=== PATIENT | female | born 1995 | race Caucasian/White ===

== ENCOUNTER → 2017-10-30 11:44 | Outpatient (CLI) | payer OTHER, SELFPAY ==
[2017-10-30 14:02] LABS: Color, Urine Yellow (Yellow); Glucose, Dipstick Normal (Normal); Ketone-Dipstick Negative (Negative); Leukocyte Esterase-Dipstick 25 /ul (Negative); Nitrite-Dipstick Negative (Negative); Occult Blood-Urine 10 /ul (Negative); Protein-Dipstick 30 mg/dl (Negative); Specific Gravity, Urine 1.015 (1.002-1.030); Urine Bilirubin Dipstick Negative (Negative); Urine Clarity Sl. Cloudy (Clear); Urine Urobilinogen Normal (Normal)
[2017-10-30 14:03] LABS: Absolute Lymphocyte Count 1.28 X10^3/ul (0.83-4.51); Absolute Neutrophil Count 5.2 X10^3/uL (2.0-7.7); Basophil# 0.02 X10^3/uL; Basophil% 0.3 % (0-1); Eosinophil# 0.04 X10^3/uL; Eosinophils% 0.6 % (0-5); Hematocrit 38.4 % (37-47); Hemoglobin 13.4 g/dl (12.0-15.0); Lymphocyte # 1.28 X10^3/ul (4.0); Lymphocyte % 18.4 % (19-41); Mean Corp Hgb Conc 34.9 g/gl (32-36); Mean Corpuscular Hgb 28.8 pg (27.0-32.0); Mean Corpuscular Volume 82.6 fL (81-99); Mean Platelet Vol. 9.6 fl (6.2-12.0); Monocyte# 0.46 X10^3/uL; Monocyte% 6.6 % (0-10); Neutrophil # 5.15 X10^3/uL (2.7-7.7); Neutrophil % 74.1 % (47-70); Platelet Count 261 K/mm3 (150-450); RBC Distribution Width CV 13.5 % (11.6-14.6); RBC Distribution Width SD 39.9 fl (35.1-43.9); Red Blood Count 4.65 M/mm3 (4.2-5.4)
[2017-10-30 14:09] LABS: POSITIVE COUNT NO; POSITIVE DIFFERENTIAL NO; POSITIVE MORPHOLOGY NO
[2017-10-30 14:19] LABS: Thyroid Stim Hormone (TSH) 0.28 uIU/mL (0.358-3.74)
[2017-10-30 15:14] LABS: HIV - WCH Non-Reactive (Nonreactive); Rubella IgG < 0.2 IU/mL
[2017-10-30 16:55] LABS: Chlamydia Trachomatis by PCR Negative (Negative); Neisserai gonorrhoeae by PCR Negative (Negative); Probe Check PASS; Sample Adequacy Control PASS; Specimen Processing Control PASS
[2017-10-31 09:21] LABS: HEPATITIS B SURFACE AG Negative (Negative); Hep C Antibodies <0.1 s/co ratio (0.0-0.9)
[2017-11-03 11:20] LABS: HPV Reflexed? NOT INDICATED
[2017-11-06 03:44] LABS: Prenatal RPR NONREACTIVE (NONREACTIVE)
== END ==
PROVIDERS: Visit Provider Obstetrics & Gynecology
DX: Z34.81 Encounter for supervision of other normal pregnancy, first trimester (principal); Z11.3 Encounter for screening for infections with a predominantly sexual mode of transmission
CPT/HCPCS: 36415; 81002; 84443; 85025; 86703; 86762; 86803; 87340; 87491; 87591; 88175; G0145

== ENCOUNTER → 2018-01-14 10:32 | Outpatient (CLI) | payer OTHER, SELFPAY ==
[2018-01-14 13:14] LABS: Free T3 2.4 pg/mL (2.18-3.98); T4 Free Direct 1.05 ng/dL (0.76-1.46); Thyroid Stim Hormone (TSH) 0.98 uIU/mL (0.358-3.74)
== END ==
PROVIDERS: Visit Provider Obstetrics & Gynecology
DX: O99.282 Endocrine, nutritional and metabolic diseases complicating pregnancy, second trimester (principal); E03.9 Hypothyroidism, unspecified; Z3A.00 Weeks of gestation of pregnancy not specified
CPT/HCPCS: 36415; 84439; 84443; 84481

== ENCOUNTER → 2018-03-24 11:08 | Outpatient (CLI) | payer OTHER, SELFPAY ==
[2018-03-24 15:30] LABS: Glucose Challenge Gest 1H 50g 80 mg/dL (70-140)
[2018-03-24 15:46] LABS: Hematocrit 35.4 % (37-47); Hemoglobin 11.9 g/dl (12.0-15.0); Mean Corp Hgb Conc 33.6 g/gl (32-36); Mean Corpuscular Hgb 30.9 pg (27.0-32.0); Mean Corpuscular Volume 91.9 fL (81-99); Mean Platelet Vol. 9.7 fl (6.2-12.0); Platelet Count 195 K/mm3 (150-450); RBC Distribution Width CV 13.5 % (11.6-14.6); RBC Distribution Width SD 44.5 fl (35.1-43.9); Red Blood Count 3.85 M/mm3 (4.2-5.4); White Blood Count 10.3 K/mm3 (4.4-11.0)
[2018-03-24 15:57] LABS: Scan Indicated on CBC? Y/N NO
== END ==
PROVIDERS: Visit Provider Obstetrics & Gynecology
DX: Z34.82 Encounter for supervision of other normal pregnancy, second trimester (principal)
CPT/HCPCS: 36415; 82950; 85027

== ENCOUNTER → 2018-05-18 13:25 | Outpatient (CLI) | payer OTHER, SELFPAY ==
[2018-05-18 14:58] LABS: Group B Strep DNA By PCR Negative (Negative); Internal Control PASS; Probe Check PASS; Specimen Processing Control PASS
== END ==
PROVIDERS: Visit Provider Obstetrics & Gynecology
DX: Z36.85 Encounter for antenatal screening for Streptococcus B (principal)
CPT/HCPCS: 87081; 87653

== ENCOUNTER 2018-06-24 07:30 | Inpatient (IN) | payer SELFPAY ==
[2018-06-24 07:30] LABS: ROM Internal Control Test YES-OK TO RESULT pt. (Internal QC); ROM Patient Test POSITIVE (Negative)
[2018-06-24 07:45] VITALS: BMI 25.2
[2018-06-24] MEDS: Lactated Ringers 1,000 ML 50 ML IV ×2 (07:55→11:19)
[2018-06-24] MEDS: Oxytocin 30 units/NS 500 ml 30 UNITS/500 ML IV.SOLN IV (08:12)
[2018-06-24 08:19] LABS: Hematocrit 35.1 % (37-47); Hemoglobin 12.2 g/dl (12.0-15.0); Mean Corp Hgb Conc 34.8 g/gl (32-36); Mean Corpuscular Hgb 31.4 pg (27.0-32.0); Mean Corpuscular Volume 90.2 fL (81-99); Mean Platelet Vol. 9.4 fl (6.2-12.0); Platelet Count 200 K/mm3 (150-450); RBC Distribution Width CV 13.2 % (11.6-14.6); RBC Distribution Width SD 42.4 fl (35.1-43.9); Red Blood Count 3.89 M/mm3 (4.2-5.4); Scan Indicated on CBC? Y/N NO; White Blood Count 10.2 K/mm3 (4.4-11.0)
[2018-06-24] MEDS: fentaNYL-bupivacaine (epidural) 100 ML BAG EPIDURAL (11:15)
[2018-06-24] MEDS: Oxytocin 30 units/NS 500 ml 30 UNITS/500 ML IV.SOLN 334 UNITS IV (13:55)
--- NOTE | 2018-06-24 14:10 | PCM.OB.VAG ---
Vaginal Delivery Maternal Presentation: Active Labor, Spontaneous Rupture of Membranes 41 weeks with SROM Amniotic Membrane Rupture Type: Spontaneous at home Rupture of Membrane time: 0500 Amniotic Fluid Description: Clear Final BEVERLEY: 06/17/18 Final BEVERLEY Source: US <20 weeks Gestational age: 41 Weeks and 0 Days Date of Procedure: 06/24/18 Pre-Operative Diagnosis: Labor Post-Operative Diagnosis: same Surgery/ Procedure Performed: Spontaneous Vaginal Delivery Anesthesiologist: Yobani Peraza Type of Anesthesia: Epidural Description of Procedure: Progressed to FD then pushed for less than 30 minutes to delivery a live male without complication. There was an active cry at delivery. Delayed cord clamping was performed. The baby was dried and placed on mom's chest. The cord was clamped and cut. The placenta delivered spontaneously intact with a centrally located 3VC. The uterus contracted well. Inspection revealed and intact cervix, upper and lower vagina, and perineum. A small periurethral first degree tear was repaired with a single stitch of 3-0 Rapide suture. Presentation: Vertex Placental Delivery Description: Spontaneous Placenta Disposition: [facility] Percentage of Placenta Abruption: 0 Cord Vessel Description: 3 Vessels Nuchal Cord Compression: Without compression Cord Entanglement: None Estimated Blood Loss: 200cc A gender: Male (1 minute): 9 (5 minute): 9 Episiotomy Description: None Laceration: Periurethral Extnsion/lac, 1st degree Medications given after delivery: IV Pitocin Complications: None
--- NOTE | 2018-06-24 14:17 | DCINST_ITS ---
Discharge Diet: No Restrictions Discharge Activity: Return to Normal Activity, May Drive, May Shower Return to work on:: 08/24/18 May shower in (days): 0 May resume sexual activity in: 4-6 weeks Call your doctor if your incision/area has: Sudden Increased Bleeding, Increased Pain/ Swelling, Foul Smelling Discharge Call your doctor if you observe: Fever of 101 or Higher, Inability to urinate, Inability to have a bowel movement, Using more than one pad per hour, Shortness of breath, Chest pain, Calf discomfort, Uncontrolled pain Cleanse incision/area with: Soap & Water Additional Instructions: If you experience any of the following, contact your healthcare provider. * Bleeding that soaks a pad every hour for 2 hours * Fever 100.4 or higher * Unrelieved incision or abdominal pain * Swelling, redness, discharge or bleeding from your incision or episiotomy site * Your incision begins to separate * Problems urinating (including inability to urinate or burning while urinating). * Visual changes * Severe headache * Flu-like symptoms * Pain or redness in one of both of your breasts * Pain, warmth, tenderness or swelling in your legs, especially the calf area * Frequent nausea and vomiting * Symptoms of depression or anxiety If you experience any of the following, call 911 or go to the nearest Emergency Room. * Chest pain * Problems breathing * Seizure activity * Partial or complete paralysis of a body part, slurred speech, weakness or drooping of the face, or a sudden inability to walk or hold your balance Allergies/Adverse Reactions: Allergies No Known Allergies Allergy (Verified 06/24/18 07:45) Medications to take at Discharge Evening Fiatt Oil 1 tab PO DAILY 06/24/18 Ibuprofen 600 mg PO 4X/DAY #30 tab 06/24/18 Iron 1 tab PO DAILY 06/24/18 Prenatabs FA 1 tab PO DAILY 06/24/18 Selenium 1 tab PO DAILY 06/24/18 The following prescriptions were given: Ibuprofen 600 mg PO 4X/DAY #30 tab Please Follow Up With: Jono Alcantara MD When: 6 weeks Test Results: Test results from this visit will be discussed in further detail at your follow- up appointment, if applicable. Proposed Discharge Date: 06/26/18
[2018-06-24] MEDS: Oxytocin 30 units/NS 500 ml 30 UNITS/500 ML IV.SOLN 167 UNITS IV (14:25)
[2018-06-24 19:40] VITALS: BP 113/66; PULSE 77; RESP 14; TEMP 37.3; O2SAT 96
[2018-06-24] MEDS: Acetaminophen 500 MG Tablet 1000 MG PO (23:22)
[2018-06-24 23:35] VITALS: BP 119/65; PULSE 66; RESP 14; TEMP 36.9; O2SAT 98
[2018-06-25 03:50] VITALS: BP 92/72; PULSE 69; RESP 16; TEMP 36.7; O2SAT 95
[2018-06-25 06:46] LABS: Hematocrit 34.3 % (37-47); Hemoglobin 11.9 g/dl (12.0-15.0); Mean Corp Hgb Conc 34.7 g/gl (32-36); Mean Corpuscular Hgb 31.6 pg (27.0-32.0); Mean Corpuscular Volume 91.2 fL (81-99); Mean Platelet Vol. 9.4 fl (6.2-12.0); Platelet Count 181 K/mm3 (150-450); RBC Distribution Width CV 13.3 % (11.6-14.6); RBC Distribution Width SD 42.9 fl (35.1-43.9); Red Blood Count 3.76 M/mm3 (4.2-5.4); White Blood Count 12.5 K/mm3 (4.4-11.0)
[2018-06-25 06:48] LABS: Scan Indicated on CBC? Y/N NO
--- NOTE | 2018-06-25 07:45 | PCM.PN.OB ---
Subjective: PPD#1 vaginal delivery Doing well. Wants to go home today. Breast feeding. Objective: Sitting up in bed. holding alert baby. - Physical Exam General: Alert, Oriented x3, Cooperative, No apparent distress HEENT: Atraumatic Neck: Supple Neurological: Cranial nerves II-XII grossly intact Psych/Mental Status: Normal Affect Vital Signs Temp Pulse Resp BP Pulse Ox 98.1 F 69 16 92/72 95 06/25/18 03:50 06/25/18 03:50 06/25/18 03:50 06/25/18 03:50 06/25/18 03:50 Oxygen Delivery Method Room Air Weight: 66.769 kg Body Mass Index (BMI) 25.2 Intake and Output for Last 24 Hours 06/23/18 06/24/18 06/25/18 23:59 23:59 23:59 Intake Total 2587 / 2587 Output Total 300 / 300 Balance 2287 / 2287 Laboratory Tests Past 24 Hrs 06/24/18 06/24/18 06/25/18 07:55 07:55 06:33 WBC 10.2 12.5 H RBC 3.89 L 3.76 L Hgb 12.2 11.9 L Hct 35.1 L 34.3 L MCV 90.2 91.2 MCH 31.4 31.6 MCHC 34.8 34.7 RDW 13.2 13.3 RDW Differential 42.4 42.9 Plt Count 200 181 MPV 9.4 9.4 Blood Type A POSITIVE Antibody Screen NEGATIVE Medical Necessity - Tobacco Use Smoking Status: Never smoker Assessment/Plan PPD#1 Stable pp. dischg home today if baby is dischgd. RTO in 6 wk for pp check, Dr. Alcantara
[2018-06-25 07:55] VITALS: BP 113/68; PULSE 78; RESP 16; TEMP 36.6; O2SAT 97
[2018-06-25] MEDS: Ibuprofen 600 MG Tablet PO (09:44)
[2018-06-25 11:50] VITALS: BP 113/78; PULSE 91; RESP 16; TEMP 36.6; O2SAT 95
[2018-06-25] MEDS: Prenatal Vits Tablet 1 TABLET PO (12:01)
[2018-06-25 16:00] VITALS: BP 113/80; PULSE 75; RESP 20; TEMP 36.8
--- NOTE | 2018-06-25 17:39 | NURSING ---
mother educated on potential risk if contracts rubella. information sheet provided. pt declines vaccination
[2018-06-25 19:40] VITALS: BP 118/79; PULSE 69; RESP 18; TEMP 36.6; O2SAT 96
[2018-06-26 02:10] VITALS: BP 112/58; PULSE 81; RESP 18; TEMP 36.9; O2SAT 97
--- NOTE | 2018-06-26 07:13 | PCM.PN.OB ---
Subjective: PPD#2 Vaginal delivery Doing well Minimal pain. Breast feeding. Baby testing pending. Would like to go home today Objective: sitting up in chair rocking baby - Physical Exam General: Alert, Oriented x3, Cooperative, No apparent distress HEENT: Atraumatic Neck: Supple Neurological: Cranial nerves II-XII grossly intact Psych/Mental Status: Normal Affect Vital Signs Temp Pulse Resp BP Pulse Ox 98.4 F 81 18 112/58 L 97 06/26/18 02:10 06/26/18 02:10 06/26/18 02:10 06/26/18 02:10 06/26/18 02:10 Oxygen Delivery Method Room Air Weight: 66.769 kg Body Mass Index (BMI) 25.2 Intake and Output for Last 24 Hours 06/24/18 06/25/18 06/26/18 23:59 23:59 23:59 Intake Total 2587 / 2587 Output Total 300 / 300 Balance 2287 / 2287 Medical Necessity - Tobacco Use Smoking Status: Never smoker Assessment/Plan PPD#2 Stable pp. dischg home today RTO in 6 wk for pp check, Dr. Alcantara
[2018-06-26 08:35] VITALS: BP 104/63; PULSE 68; RESP 20; TEMP 36.6; O2SAT 98
[2018-06-26] MEDS: Prenatal Vits Tablet 1 TABLET PO (12:21)
--- OUTSIDE RECORDS SUMMARY | 2018-08-19 06:57 | XMS RPT_ITS ---
:1995 Author Organization OH[facility] Care Team Providers Name Role Phone Quinton, Jono Attending Unavailable Seals, Jono Attending Unavailable Seals, Jono Attending Unavailable Seals, Jono Attending Unavailable Seals, Jono Referring Unavailable Brett Fuentes Primary Care Unavailable Seals, Jono Admitting Unavailable Seals, Jono Attending Unavailable Seals, Jono Attending Unavailable Seals, Jono Referring Unavailable Seals, Jono Admitting Unavailable PROBLEMS PROBLEMS DATE TYPE CONDITION / CODE ATTENDING STATUS SOURCE 05/18/2018 Unknown Z36.85 - Encounter SealJono stone Active [place] for Community screening for Hospital Streptococcus B / Repository Z36.85(ICD-10) 03/24/2018 Unknown Z34.82 - Encounter SealJono stone Active [place] for supervision of Community other normal Hospital , second Repository trimester / Z34.82(ICD-10) 01/14/2018 Unknown E03.9 - SealsJono Active [place] Hypothyroidism, Community unspecified / Hospital E03.9(ICD-10) Repository 10/30/2017 Unknown Z11.3 - Encounter SealJono stone Active [place] for screening for Community infections with a Hospital predominantly Repository sexual mode of transmission / Z11.3(ICD-10) 10/30/2017 Unknown Z12.4 - Encounter SealJono stone Active [place] for screening for Community malignant neoplasm Hospital of cervix / Repository Z12.4(ICD-10) 10/30/2017 Unknown Z34.81 - Encounter SealJono stone for supervision of Community other normal Hospital , first Repository trimester / Z34.81(ICD-10) PROCEDURES PROCEDURES No Procedure Records FoundRESULTS RESULTS CBC-COMPLETE BLOOD CNT Collected: 06/25/2018 Status: F Source: [place] NO DIFF 6:33 AM [facility] REPOSITORY Order Comment: Reason for Laboratory Test Day #1 TYPE CODE TESTS RESULT OUT OF RANGE REFERENCE UNITS LAB L100.1000 4.4-11.0 K/mm3 High WBC 12.5 LAB L100.1200 4.2-5.4 M/mm3 Low RBC 3.76 LAB L100.1300 12.0-15.0 g/dl Low HGB 11.9 LAB L100.1400 37-47 % Low HCT 34.3 LAB L100.1500 81-99 fL Normal MCV 91.2 LAB L100.1600 27.0-32.0 pg Normal MCH 31.6 LAB L100.1700 32-36 g/gl Normal MCHC 34.7 LAB L100.1810 11.6-14.6 % Normal RDW CV 13.3 LAB L100.1820 35.1-43.9 fl Normal RDW SD 42.9 LAB L100.1900 150-450 K/mm3 Normal PLT 181 LAB L100.2000 6.2-12.0 fl Normal MPV 9.4 Performed By: #### L100.0500 #### [facility] [address] [place], [address] DISCHARGE INSTRUCTION Observed: 06/24/2018 Status: F Source: [place] 2:17 PM [facility] REPOSITORY [facility] Medical Records Department [address] [place] [address] Instructions for Home/Discharge Instructions 06/24/18 1415 MR#: [id number] Acct: [id number] Name: IRMA CALDERON Rep #: [id number] : 1995 23 From: Jono Alcantara MD PCP: Status: ADM IN Discharge Diet: No Restrictions Discharge Activity: Return to Normal Activity, May Drive, May Shower Return to work on:: 08/24/18 May shower in (days): 0 May resume sexual activity in: 4-6 weeks Call your doctor if your incision/area has: Sudden Increased Bleeding, Increased Pain/ Swelling, Foul Smelling Discharge Call your doctor if you observe: Fever of 101 or Higher, Inability to urinate, Inability to have a bowel movement, Using more than one pad per hour, Shortness of breath, Chest pain, Calf discomfort, Uncontrolled pain Cleanse incision/area with: Soap AND Water Additional Instructions: If you experience any of the following, contact your healthcare provider. * Bleeding that soaks a pad every hour for 2 hours * Fever 100.4 or higher * Unrelieved incision or abdominal pain * Swelling, redness, discharge or bleeding from your incision or episiotomy site * Your incision begins to separate * Problems urinating (including inability to urinate or burning while urinating). * Visual changes * Severe headache * Flu-like symptoms * Pain or redness in one of both of your breasts * Pain, warmth, tenderness or swelling in your legs, especially the calf area * Frequent nausea and vomiting * Symptoms of depression or anxiety If you experience any of the following, call 911 or go to the nearest Emergency Room. * Chest pain * Problems breathing * Seizure activity * Partial or complete paralysis of a body part, slurred speech, weakness or drooping of the face, or a sudden inability to walk or hold your balance Allergies/Adverse Reactions: Allergies No Known Allergies Allergy (Verified 06/24/18 07:45) Medications to take at Discharge Evening [place] Oil 1 tab PO DAILY 06/24/18 Ibuprofen 600 mg PO 4X/DAY #30 tab 06/24/18 Iron 1 tab PO DAILY 06/24/18 Prenatabs FA 1 tab PO DAILY 06/24/18 Selenium 1 tab PO DAILY 06/24/18 The following prescriptions were given: Ibuprofen 600 mg PO 4X/DAY #30 tab Please Follow Up With: Jono Alcantara MD When: 6 weeks Test Results: Test results from this visit will be discussed in further detail at your follow-up appointment, if applicable. Proposed Discharge Date: 06/26/18 06/24/18 1417 <Electronically signed by Jono Alcantara MD> Date Jono Alcantara MD CC: OPERATIVE REPORT Observed: 06/24/2018 Status: F Source: [place] 2:14 PM [facility] REPOSITORY [facility] Medical Records Department [address] [place] [address] Operative Report 06/24/18 1410 MR#: [id number] Acct: [id number] Name: IRMA CALDERON Rep #: [id number] : 1995 23 From: Jono Alcantara MD PCP: Status: ADM IN Location: [place] [address] Vaginal Delivery Maternal Presentation: Active Labor, Spontaneous Rupture of Membranes 41 weeks with SROM Amniotic Membrane Rupture Type: Spontaneous at home Rupture of Membrane time: 0500 Amniotic Fluid Description: Clear Final BEVERLEY: 06/17/18 Final BEVERLEY Source: US <20 weeks Gestational age: 41 Weeks and 0 Days Date of Procedure: 06/24/18 Pre-Operative Diagnosis: Labor Post-Operative Diagnosis: same Surgery/ Procedure Performed: Spontaneous Vaginal Delivery Anesthesiologist: Yobani Peraza Type of Anesthesia: Epidural Description of Procedure: Progressed to FD then pushed for less than 30 minutes to delivery a live male without complication. There was an active cry at delivery. Delayed cord clamping was performed. The baby was dried and placed on mom's chest. The cord was clamped and cut. The placenta delivered spontaneously intact with a centrally located 3VC. The uterus contracted well. Inspection revealed and intact cervix, upper and lower vagina, and perineum. A small periurethral first degree tear was repaired with a single stitch of 3-0 Rapide suture. Presentation: Vertex Placental Delivery Description: Spontaneous Placenta Disposition: [facility] Percentage of Placenta Abruption: 0 Cord Vessel Description: 3 Vessels Nuchal Cord Compression: Without compression Cord Entanglement: None Estimated Blood Loss: 200cc A gender: Male (1 minute): 9 (5 minute): 9 Episiotomy Description: None Laceration: Periurethral Extnsion/lac, 1st degree Medications given after delivery: IV Pitocin Complications: None 06/24/18 1414 <Electronically signed by Jono Alcantara MD> Date Jono Alcantara MD CC: Jono Alcantara MD Signed CBC-COMPLETE BLOOD CNT Collected: 06/24/2018 Status: F Source: [place] NO DIFF 7:55 AM [facility] REPOSITORY TYPE CODE TESTS RESULT OUT OF RANGE REFERENCE UNITS LAB L100.1000 4.4-11.0 K/mm3 Normal WBC 10.2 LAB L100.1200 4.2-5.4 M/mm3 Low RBC 3.89 LAB L100.1300 12.0-15.0 g/dl Normal HGB 12.2 LAB L100.1400 37-47 % Low HCT 35.1 LAB L100.1500 81-99 fL Normal MCV 90.2 LAB L100.1600 27.0-32.0 pg Normal MCH 31.4 LAB L100.1700 32-36 g/gl Normal MCHC 34.8 LAB L100.1810 11.6-14.6 % Normal RDW CV 13.2 LAB L100.1820 35.1-43.9 fl Normal RDW SD 42.4 LAB L100.1900 150-450 K/mm3 Normal PLT 200 LAB L100.2000 6.2-12.0 fl Normal MPV 9.4 Performed By: #### L100.0500 #### [facility] [address] [place], [address] TYPE AND SCREEN Collected: 06/24/2018 Status: F Source: [place] 7:55 AM [facility] REPOSITORY Order Comment: Has pt arrived? Y Reason for Type AND Screen/Red Cells: ROUTINE TYPE CODE TESTS RESULT OUT OF RANGE REFERENCE UNITS LAB B10.0800 A Normal BLOOD TYPE GEL POSITIVE LAB B100.4000 Normal Antibody NEGATIVE Screen Performed By: #### B101.7450 #### [facility] [address] [place], [address] (ROM) RUPTURE OF Collected: 06/24/2018 Status: F Source: [place] MEMBRANES 7:00 AM [facility] REPOSITORY TYPE CODE TESTS RESULT OUT OF REFERENCE UNITS RANGE LAB L205.1310 Negative High ROM POSITIVE Result Comment: Amniotic fluid present indicates rupture of Membranes. RESULTS CALLED TO 06/24/18 0730 Lucero Barlow. REPORT READ BACK BY SAME . Performed By: #### L205.1000 #### [facility] [address] [place], [address] GROUP B STREP DNA Collected: 05/18/2018 Status: F Source: [place] BY PCR 10:20 AM [facility] REPOSITORY Order Comment: Source: Vaginal-Rectal TYPE CODE TESTS RESULT OUT OF RANGE REFERENCE UNITS LAB L8200.0100 Negative Normal GBS TEST Negative RESULT Performed By: #### L8200.0000 #### [facility] [address] [place], [address] Observed: 05/18/2018 Status: F Source: [place] CULTURE, GROUP B 12:00 AM [facility] STREPTOCOCCUS REPOSITORY MOE Culture Group B Beta Streptococcus is not isolated. Performed By: #### M100.1800 #### [facility] [address] [place], [address] GLUCOSE CHALLENGE GEST Collected: 03/24/2018 Status: F Source: [place] 1H 50G 11:15 AM [facility] REPOSITORY TYPE CODE TESTS RESULT OUT OF RANGE REFERENCE UNITS LAB L501.0250 70-140 mg/dL Normal GLU GEST 80 50g 1H Performed By: #### L501.0250 #### [facility] [address] [facility] [place], [address] CBC-COMPLETE BLOOD CNT Collected: 03/24/2018 Status: F Source: [place] NO DIFF 11:15 AM [facility] REPOSITORY TYPE CODE TESTS RESULT OUT OF RANGE REFERENCE UNITS LAB L100.1000 4.4-11.0 K/mm3 Normal WBC 10.3 LAB L100.1200 4.2-5.4 M/mm3 Low RBC 3.85 LAB L100.1300 12.0-15.0 g/dl Low HGB 11.9 LAB L100.1400 37-47 % Low HCT 35.4 LAB L100.1500 81-99 fL Normal MCV 91.9 LAB L100.1600 27.0-32.0 pg Normal MCH 30.9 LAB L100.1700 32-36 g/gl Normal MCHC 33.6 LAB L100.1810 11.6-14.6 % Normal RDW CV 13.5 LAB L100.1820 35.1-43.9 fl High RDW SD 44.5 LAB L100.1900 150-450 K/mm3 Normal PLT 195 LAB L100.2000 6.2-12.0 fl Normal MPV 9.7 Performed By: #### L100.0500 #### [facility] [address] [facility] [place], [address] FREE T3 Collected: 01/14/2018 Status: F Source: [place] 10:35 AM [facility] REPOSITORY TYPE CODE TESTS RESULT OUT OF RANGE REFERENCE UNITS LAB L501.77192 2.18-3.98 pg/mL Normal FREE T3 2.4 Performed By: #### L501.59438, L501.9520, L506.0400 #### [facility] [address] [facility] [place], [place], [address] THYROID STIM HORMONE Collected: 01/14/2018 Status: F Source: [place] (TSH) 10:35 AM [facility] REPOSITORY TYPE CODE TESTS RESULT OUT OF RANGE REFERENCE UNITS LAB L501.9520 0.358-3.74 uIU/mL Normal TSH 0.98 Performed By: #### L501.10521, L501.9520, L506.0400 #### [facility] [address] [place], [address] T4 FREE DIRECT Collected: 01/14/2018 Status: F Source: [place] 10:35 AM [facility] REPOSITORY TYPE CODE TESTS RESULT OUT OF RANGE REFERENCE UNITS LAB L506.0400 0.76-1.46 ng/dL Normal T4 FREE 1.05 DIRECT Performed By: #### L501.59611, L501.9520, L506.0400 #### [facility] [address] [place], [address] CBC W/DIFF, AUTOMATED Collected: 10/30/2017 Status: F Source: [place] 11:55 AM [facility] REPOSITORY TYPE CODE TESTS RESULT OUT OF RANGE REFERENCE UNITS LAB L100.1000 4.4-11.0 K/mm3 Normal WBC 7.0 LAB L100.1200 4.2-5.4 M/mm3 Normal RBC 4.65 LAB L100.1300 12.0-15.0 g/dl Normal HGB 13.4 LAB L100.1400 37-47 % Normal HCT 38.4 LAB L100.1500 81-99 fL Normal MCV 82.6 LAB L100.1600 27.0-32.0 pg Normal MCH 28.8 LAB L100.1700 32-36 g/gl Normal MCHC 34.9 LAB L100.1810 11.6-14.6 % Normal RDW CV 13.5 LAB L100.1820 35.1-43.9 fl Normal RDW SD 39.9 LAB L100.1900 150-450 K/mm3 Normal PLT 261 LAB L100.2000 6.2-12.0 fl Normal MPV 9.6 LAB L100.2100 47-70 % High NEUT% 74.1 LAB L100.2200 19-41 % Low LY% 18.4 LAB L100.2300 0-10 % Normal MONO% 6.6 LAB L100.2400 0-5 % Normal EO% 0.6 LAB L100.2500 0-1 % Normal BASO% 0.3 LAB L100.2550 0.0-0.9 % Normal IM GRAN % 0.000 Result Comment: IG% - Immature Granulocytes (promyelocytes, myelocytes and metamyelocytes) > 1% indicates that a LEFT SHIFT is Present. LAB L100.2620 2.0-7.7 X10 3/uL Normal Absolute Neut 5.2 LAB L100.2720 0.83-4.51 X10 3/ul Normal Absolute Lymph 1.28 Performed By: #### L100.0100 #### [facility] [address] [place], [place], [address] URINALYSIS, ROUTINE Collected: 10/30/2017 Status: F Source: [place] (DIPSTICK) 11:55 AM [facility] REPOSITORY Order Comment: How was Urine Obtained? Urine, Random TYPE CODE TESTS RESULT OUT OF RANGE REFERENCE UNITS LAB L400.3000 Yellow COLOR Normal Yellow LAB L400.3050 Clear Normal CLARITY Sl. Cloudy LAB L400.3200 Normal mg/dl Normal GLUCOSE, UR Normal LAB L400.3300 Negative mg/dL Normal BILIRUBIN URINE Negative LAB L400.3400 Negative mg/dl Normal KETONE UR Negative LAB L400.3465 1.002-1.030 Normal SP.GR. DIPSTX 1.015 LAB L400.3550 5.0 - 8.0 pH UR Normal 7.0 LAB L400.3600 Negative mg/dl High PROT 30 DIPSTX LAB L400.3700 Normal mg/dl Normal UROBILI Normal LAB L400.3750 Negative Normal NITRITE UR Negative LAB L400.3780 Negative /ul High 10 OCCULT BLOOD-UR LAB L400.3800 Negative /ul High LEUK 25 ESTERASE Performed By: #### L400.2010 #### [facility] [address] [place], [place], [address] THYROID STIM HORMONE Collected: 10/30/2017 Status: F Source: [place] (TSH) 11:55 AM [facility] REPOSITORY TYPE CODE TESTS RESULT OUT OF RANGE REFERENCE UNITS LAB L501.9520 0.358-3.74 uIU/mL Low TSH 0.28 Performed By: #### L501.9520 #### [facility] [address] [place], [address] RUBELLA IGG Collected: 10/30/2017 Status: F Source: [place] 11:55 AM [facility] REPOSITORY TYPE CODE TESTS RESULT OUT OF RANGE REFERENCE UNITS LAB L509.4000 IU/mL Normal Rubella IgG < 0.2 Result Comment: Antibody results Interpretation of Immune Status < 5 IU/ml Presumed Non-immune 5 - < 10 IU/ml Equivocal > or = 10 IU/ml Presumed Immune Performed By: #### L509.4000, L3890.6005 #### [facility] [address] [place], [place], [address] HIV - WCH Collected: 10/30/2017 Status: F Source: [place] 11:55 AM [facility] REPOSITORY TYPE CODE TESTS RESULT OUT OF RANGE REFERENCE UNITS LAB L3890.6005 Nonreactive Normal HIV - WCH Non-Reactive Performed By: #### L509.4000, L3890.6005 #### [facility] [address] [place], [place], [address] T AND S-NO Collected: 10/30/2017 Status: F Source: [place] CHARGE W/PNP 11:55 AM [facility] REPOSITORY Order Comment: Reason for Type AND Screen/Red Cells: Surgery? N TYPE CODE TESTS RESULT OUT OF RANGE REFERENCE UNITS LAB B10.0800 A Normal BLOOD POSITIVE TYPE GEL LAB B100.4050 Normal Ab SCREEN NEGATIVE GEL Performed By: #### B100.7550 #### [facility] [address] [place], [place], [address] HEPATITIS B SURFACE Collected: 10/30/2017 Status: F Source: [place] AG 11:55 AM [facility] REPOSITORY TYPE CODE TESTS RESULT OUT OF RANGE REFERENCE UNITS LAB L3100.0400 Negative Normal HB Negative SURF AG Result Comment: Performed at: [facility] [id number] Foam Rubber Molder: Jackson Song PhD, Phone: [phone] Performed By: #### L3100.0390, L3100.0625 #### [facility] (refer to report for specific site) refer to report for address and phone number HEPATITIS C ANTIBODIES Collected: 10/30/2017 Status: F Source: [place] 11:55 AM [facility] REPOSITORY TYPE CODE TESTS RESULT OUT OF RANGE REFERENCE UNITS LAB L3100.0650 0.0-0.9 s/co ratio Normal HEP C AB <0.1 Result Comment: Negative: < 0.8 Indeterminate: 0.8 - 0.9 Positive: > 0.9 The CDC recommends that a positive HCV antibody result be followed up with a HCV Nucleic Acid Amplification test (537660). Performed By: #### L3100.0390, L3100.0625 #### [facility] (refer to report for specific site) refer to report for address and phone number RPR Collected: 10/30/2017 Status: F Source: [place] 11:55 AM [facility] REPOSITORY TYPE CODE TESTS RESULT OUT OF REFERENCE UNITS RANGE LAB L700.5100 NONREACTIVE Normal RPR NONREACTIVE Performed By: #### L700.5100 #### [facility] [address] [facility] [place], [address] CT/NG WCH BY PCR Collected: 10/30/2017 Status: F Source: [place] 10:00 AM [facility] REPOSITORY TYPE CODE TESTS RESULT OUT OF RANGE REFERENCE UNITS LAB L8200.2100 Negative Normal Chlam Negative Trac PCR LAB L8200.2200 Negative Normal NG by Negative PCR Performed By: #### L8200.2000 #### [facility] [address] [facility] [place], [address] PAP I-G W/RFX HRHPV Collected: 10/30/2017 Status: F Source: [place] 10:00 AM [facility] REPOSITORY Order Comment: CYTOLOGY INFORMATION: - CLINICAL INFORMATION: - DATE LMP/MENOPAUSE: 09/14/17 LMP - COLLECTION VIAL: Thin Prep Vial - PRINT LINE FEEDER SOURCE: CERVICAL/ENDOCERVICAL - COLLECTION TECHNIQUE: BRUSH/SPATULA Specimen Comment: [id number] Specimen Comment: No. of containers..01 ThinPrep Vial TYPE CODE TESTS RESULT OUT OF RANGE REFERENCE UNITS LAB L7400.0800 . Normal DIAGN Comment Result Comment: NEGATIVE FOR INTRAEPITHELIAL LESION AND MALIGNANCY. LAB L7400.0900 . Normal ADEQ Comment Result Comment: Satisfactory for evaluation. Endocervical and/or squamous metaplastic cells (endocervical component) are present. LAB L7400.1400 . Normal PERFORM Comment Result Comment: Bridger Josue, Mechanical Maintenance Worker (ASCP) LAB L7400.2575 . Normal TEST METHOD Comment Result Comment: This liquid based ThinPrep(R) pap test was screened with the use of an image guided system. LAB L7400.2600 . Normal . COMM LAB L7400.2700 . Normal PAPSMR Comment Result Comment: The Pap smear is a screening test designed to aid in the detection of premalignant and malignant conditions of the uterine cervix. It is not a diagnostic procedure and should not be used as the sole means of detecting cervical cancer. Both false-positive and false-negative reports do occur. LAB L7400.2800 . Normal HPV RFLX Comment Result Comment: The HPV DNA reflex criteria were not met with this specimen result therefore, no HPV testing was performed. Performed at: [address] [id number] Foam Rub[employer] Molder: Nguyen Flynn MD, Phone: [phone] Performed By: #### L7400.0350 #### [facility] (refer to report for specific site) refer to report for address and phone number ALLERGIES ALLERGIES DATE TYPE / CODE NAME / CODE REACTION SEVERITY SOURCE 06/24/2018 Drug No Known Unknown [facility] Allergy/4160 Allergies/F00 Hospital 77661(SNOMED 1200463(RXNOR Repository CT) M) ENCOUNTERS ENCOUNTERS ADMIT/DISCHARGE ACCOUNT ADMITTING ENCOUNTER LOCATION SOURCE NUMBER CLASS 06/24/2018/ [id number] Jono Alcantara [place]patient [place] 8 0 Encounter [facility] ing:WPRoom: Repository TK141Lfb: 1 06/17/2018 [id number] Jono Alcantara Ambulatory [place] 5 [facility] ing:WP Repository 05/18/2018 [id number] Ambulatory [place] 5 [facility] ing:LABSPEC Repository 03/24/2018 [id number] Ambulatory [place] 5 [facility] ing:WOBLAB Repository 01/14/2018 [id number] Ambulatory [place] 0 [facility] ing:WOBLAB Repository 10/30/2017 [id number] Ambulatory [place] 1 [facility] ing:WOBLAB Repository PAYERS PAYERS ENCOUNTER GUARANTOR PAYER SUBSCRIBER SOURCE 06/24/2018 IRMA S Primary Insurance:[facility] IRMA S [place] [id number] S PACKAGE PLANPolicy SHETLERDOB: [facility] [place] Number: .Effective [id number] Women's HospitalFREDERKOKIDIGN[facility] Date:2018-06-24 [place], [place] [address]Oho: () 06/24/2018 Secondary NOT GIVENUNK [place] Insurance:SELF PAY [facility] Number: Effective Repository Date:2018-06-24 06/17/2018 IRMA S Primary IRMA S [place] [id number] Insurance:UATSDIN SHETLERDOB: [facility] AFSANEH [facility] Number: [id number], [place] [id number] Repository [address]Zcx: ([phone]) Date:[phone] () 06/17/2018 Secondary NOT GIVENUNK [place] Insurance:SELF PAY [facility] Number: Effective Repository Date:2018-05-18 05/18/2018 IRMA S Primary IRMA S [place] [id number] Insurance:UATSDIN SHETLERDOB: [facility] Number: [id number], [place] [id number] Repository [address]Sbb: ([phone]) Date:2018-05-18 [phone] () 05/18/2018 Secondary NOT GIVENUNK [place] Insurance:SELF PAY [facility] Number: Effective Repository Date:2018-05-18 03/24/2018 IRMA Primary IRMA [id number] Insurance:UATSDIN SHETLERDOB: [facility] Number: [id number], [place] [id number] Repository [address]Sha: (330) Date:2018-03-24 [phone] () 03/24/2018 Secondary NOT GIVENUNK [place] Insurance:SELF PAY [facility] Number: Effective Repository Date:2018-03-24 01/14/2018 IRMA Primary IRMA [place] [id number] Insurance:UATSDIN SHETLERDOB: [facility] Number: [id number], [place] [id number] Repository [address]Gnd: ([phone]) Date:2018-01-14 [phone] () 01/14/2018 Secondary NOT GIVENUNK [place] Insurance:SELF PAY [facility] Number: Effective Repository Date:2018-01-14 10/30/2017 IRMA [facility] IRMA [id number] Insurance:UATSDIN MANANOB: [facility] Number: [id number] [id number] Repository , [place] [address]Eub: Date:2017-10-30 () 10/30/2017 Secondary NOT GIVENUNK [place] Insurance:SELF PAY [facility] Number: Effective Repository Date:2017-10-30
== END 2018-06-26 12:30 | disposition home or self-care (01) | DRG 807 ==
LOC: WPOUT 07:31
PROVIDERS: Admitting Provider Obstetrics & Gynecology; Referring Provider Obstetrics & Gynecology; Visit Provider Obstetrics & Gynecology
DX: O71.82 Other specified trauma to perineum and vulva (principal); Z3A.41 41 weeks gestation of pregnancy; Z37.0 Single live birth
CPT/HCPCS: 59025; 59050; 84112; 85027; 86850; 86900; 99218; J7120; G0378